=== PATIENT | male | born 1985 | race Caucasian/White ===

== ENCOUNTER 2018-01-16 06:33 | Inpatient (IN) | payer OTHER ==
[2018-01-16] MEDS ORDERED: ALBUTEROL/IPRATROPIUM (NEB) 3 ML AMP HHN (10:00)
[2018-01-16] MEDS ORDERED: ONDANSETRON 4 MG INJ IV (10:00)
[2018-01-16] MEDS ORDERED: ACETAMINOPHEN 325 MG TAB PO (10:00)
[2018-01-16] MEDS ORDERED: DOCUSATE SODIUM 100 MG CAP PO (10:00)
[2018-01-16] MEDS ORDERED: NACL 0.9% 3 ML SYG IV (10:00)
[2018-01-16] MEDS ORDERED: AZITHROMYCIN 250 MG TAB PO (10:30)
[2018-01-16] MEDS ORDERED: GLUCOSE GEL 15 GRAM TUBE BUCCAL (11:00)
[2018-01-16] MEDS ORDERED: GLUCOSE GEL 15 GRAM TUBE PO ×2 (11:00)
[2018-01-16] MEDS ORDERED: GLUCAGON 1 MG INJ IM (11:00)
[2018-01-16] MEDS ORDERED: DEXTROSE 50% 50 ML SYRINGE IV ×2 (11:00)
[2018-01-16 11:23] LABS: ADD MAN DIFF? NO
[2018-01-16 11:27] LABS: BASOPHILS % 0.2 % (0.0-2.0); HEMATOCRIT 44.9 % (42.0-52.0); HEMOGLOBIN 15.2 g/dl (14.0-18.0); LYMPHOCYTES # 0.8 10^3/ul (0.8-2.9); LYMPHOCYTES % 7.2 % (15.0-51.0); MEAN CORPUSCULAR HEMOGLOBIN 30.8 pg (29.0-33.0); MEAN CORPUSCULAR HGB CONC 33.9 g/dl (32.0-37.0); MEAN CORPUSCULAR VOLUME 90.9 fl (82.0-101.0); MEAN PLATELET VOLUME 9.7 fl (7.4-10.4); MONOCYTE # 0.1 10^3/ul (0.3-0.9); NEUTROPHIL # 9.7 10^3/ul (1.6-7.5); NEUTROPHILS % 90.9 % (39.0-77.0); PLATELET COUNT 327 10^3/UL (140-415); RED BLOOD COUNT 4.94 10^6/ul (4.70-6.10); RED CELL DISTRIBUTION WIDTH 12.1 % (11.5-14.5)
[2018-01-16 11:27] LABS: WHITE BLOOD COUNT 10.7 10^3/ul (4.8-10.8)
[2018-01-16 11:45] LABS: LACTIC ACID 4.1 mmol/L (0.5-2.0)
[2018-01-16] MEDS: METHYLPREDNISOLONE 125 MG INJ IV ×2 (11:47→21:11)
[2018-01-16] MEDS: CEFTRIAXONE 1 GM/50 ML (PMX) 50 ML IVPB (11:48)
[2018-01-16 11:56] LABS: ALANINE AMINOTRANSFERASE 100 IU/L (13-69); ALBUMIN 4.6 g/dl (3.3-4.9); ALBUMIN/GLOBULIN RATIO 1.27; ALKALINE PHOSPHATASE 63 IU/L (42-121); ANION GAP 22 (8-16); ASPARTATE AMINO TRANSFERASE 55 IU/L (15-46); BILIRUBIN,INDIRECT 0.4 mg/dl (0-1.1); BILIRUBIN,TOTAL 0.4 mg/dl (0.2-1.3); BLOOD UREA NITROGEN 12 mg/dl (7-20); CALCIUM 9.8 mg/dl (8.4-10.2); CARBON DIOXIDE 21 mmol/L (21-31); CHLORIDE 104 mmol/L (97-110); CREATININE 0.79 mg/dl (0.61-1.24); GLUCOSE 244 mg/dl (70-220); POTASSIUM 4.8 mmol/L (3.5-5.1); SODIUM 142 mmol/L (135-144); TOTAL PROTEIN 8.2 g/dl (6.1-8.1)
[2018-01-16] MEDS: ENOXAPARIN 40 MG/0.4 ML SYG SC (11:57)
[2018-01-16] MEDS: AZITHROMYCIN 500MG/NS (PMX) 250 ML IV (12:20)
[2018-01-16] MEDS: INSULIN ASPART [NOVOLOG] 3 ML PEN SC ×3 (12:25→21:00)
[2018-01-16] MEDS ORDERED: SOD CHLORIDE 0.9% 1,000 ML IV (12:30)
[2018-01-16] MEDS ORDERED: SOD CHLORIDE 0.9% 500 ML IV (12:30)
[2018-01-16] MEDS: ALBUTEROL/IPRATROPIUM (NEB) 3 ML AMP HHN (12:30)
[2018-01-16] MEDS ORDERED: LEVALBUTEROL (NEB) 0.63 MG/3 ML AMP HHN (13:30)
[2018-01-16] MEDS ORDERED: IPRATROPIUM (NEB) 0.5 MG/2.5 ML AMP HHN (13:30)
[2018-01-16] MEDS: SOD CHLORIDE 0.9% 2,760 ML IV (13:38)
[2018-01-16] MEDS: SOD CHLORIDE 0.9% 1,000 ML IV ×2 (16:08→22:30)
[2018-01-16 16:54] LABS: LACTIC ACID 2.4 mmol/L (0.5-2.0)
[2018-01-16] MEDS: IPRATROPIUM (NEB) 0.5 MG/2.5 ML AMP HHN (20:39)
[2018-01-16] MEDS: LEVALBUTEROL (NEB) 0.63 MG/3 ML AMP HHN (20:39)
[2018-01-16] MEDS: FAMOTIDINE 20 MG TAB PO (21:11)
[2018-01-17] MEDS: ACCU-CHEK XX (02:00)
[2018-01-17] MEDS: IPRATROPIUM (NEB) 0.5 MG/2.5 ML AMP HHN ×4 (02:00→20:42)
[2018-01-17] MEDS: LEVALBUTEROL (NEB) 0.63 MG/3 ML AMP HHN ×4 (02:00→20:42)
[2018-01-17] MEDS: SOD CHLORIDE 0.9% 1,000 ML IV ×4 (04:04→18:02)
[2018-01-17] MEDS: METHYLPREDNISOLONE 125 MG INJ IV (05:52)
[2018-01-17 06:12] LABS: ADD MAN DIFF? NO
[2018-01-17 06:17] LABS: WHITE BLOOD COUNT 21.4 10^3/ul (4.8-10.8)
[2018-01-17 06:17] LABS: BASOPHILS % 0.2 % (0.0-2.0); HEMATOCRIT 41.9 % (42.0-52.0); HEMOGLOBIN 14.4 g/dl (14.0-18.0); LYMPHOCYTES # 1.4 10^3/ul (0.8-2.9); LYMPHOCYTES % 6.5 % (15.0-51.0); MEAN CORPUSCULAR HEMOGLOBIN 31.3 pg (29.0-33.0); MEAN CORPUSCULAR HGB CONC 34.4 g/dl (32.0-37.0); MEAN CORPUSCULAR VOLUME 91.1 fl (82.0-101.0); MEAN PLATELET VOLUME 9.8 fl (7.4-10.4); MONOCYTES % 4.7 % (0.0-11.0); NEUTROPHIL # 18.9 10^3/ul (1.6-7.5); NEUTROPHILS % 88.1 % (39.0-77.0); PLATELET COUNT 321 10^3/UL (140-415)
[2018-01-17 06:55] LABS: HEMOGLOBIN A1C 6.4 % (0-5.9)
[2018-01-17 07:07] LABS: ANION GAP 19 (8-16); BLOOD UREA NITROGEN 13 mg/dl (7-20); CALCIUM 9.4 mg/dl (8.4-10.2); CARBON DIOXIDE 22 mmol/L (21-31); CHLORIDE 106 mmol/L (97-110); CHOL/HDL RATIO 4.6 RATIO; CHOLESTEROL 238 mg/dl (100-200); CREATININE 0.69 mg/dl (0.61-1.24); GLUCOSE 214 mg/dl (70-220); HDL CHOLESTEROL 51 mg/dl (28-63); LDL CHOLESTEROL,CALCULATED 169 mg/dl; MAGNESIUM 2.1 mg/dl (1.7-2.5); POTASSIUM 4.7 mmol/L (3.5-5.1); SODIUM 142 mmol/L (135-144); TRIGLYCERIDES 90 mg/dl (0-149)
[2018-01-17] MEDS: INSULIN ASPART [NOVOLOG] 3 ML PEN SC ×4 (07:38→21:20)
[2018-01-17] MEDS: FAMOTIDINE 20 MG TAB PO ×2 (08:42→21:14)
[2018-01-17] MEDS: ENOXAPARIN 40 MG/0.4 ML SYG SC (08:46)
[2018-01-17] MEDS ORDERED: AZITHROMYCIN 250 MG TAB PO (09:00)
[2018-01-17] MEDS: CEFTRIAXONE 1 GM/50 ML (PMX) 50 ML IVPB (10:19)
[2018-01-17] MEDS: AZITHROMYCIN 500MG/NS (PMX) 250 ML IV (10:55)
[2018-01-17] MEDS: METHYLPREDNISOLONE 40 MG INJ IV ×2 (14:48→21:14)
[2018-01-17 16:22] LABS: LACTIC ACID 4.8 mmol/L (0.5-2.0)
[2018-01-17 20:35] LABS: LACTIC ACID 3.7 mmol/L (0.5-2.0)
[2018-01-18] MEDS: SOD CHLORIDE 0.9% 1,000 ML IV ×2 (00:52→07:50)
[2018-01-18] MEDS: IPRATROPIUM (NEB) 0.5 MG/2.5 ML AMP HHN ×2 (01:00→08:15)
[2018-01-18] MEDS: LEVALBUTEROL (NEB) 0.63 MG/3 ML AMP HHN ×2 (01:00→08:15)
[2018-01-18] MEDS: ACCU-CHEK XX (02:00)
[2018-01-18] MEDS: METHYLPREDNISOLONE 40 MG INJ IV (05:40)
[2018-01-18 06:14] LABS: ADD MAN DIFF? NO
[2018-01-18 06:26] LABS: BASOPHILS % 0.1 % (0.0-2.0); HEMATOCRIT 40.4 % (42.0-52.0); HEMOGLOBIN 13.9 g/dl (14.0-18.0); LYMPHOCYTES # 1.4 10^3/ul (0.8-2.9); LYMPHOCYTES % 6.4 % (15.0-51.0); MEAN CORPUSCULAR HEMOGLOBIN 31.2 pg (29.0-33.0); MEAN CORPUSCULAR HGB CONC 34.4 g/dl (32.0-37.0); MEAN CORPUSCULAR VOLUME 90.6 fl (82.0-101.0); MEAN PLATELET VOLUME 10.3 fl (7.4-10.4); MONOCYTE # 0.6 10^3/ul (0.3-0.9); MONOCYTES % 2.7 % (0.0-11.0); NEUTROPHIL # 19.3 10^3/ul (1.6-7.5); NEUTROPHILS % 89.2 % (39.0-77.0); PLATELET COUNT 346 10^3/UL (140-415); RED BLOOD COUNT 4.46 10^6/ul (4.70-6.10)
[2018-01-18 06:26] LABS: WHITE BLOOD COUNT 21.7 10^3/ul (4.8-10.8)
[2018-01-18 06:55] LABS: ANION GAP 17 (8-16); BLOOD UREA NITROGEN 16 mg/dl (7-20); CALCIUM 9.4 mg/dl (8.4-10.2); CARBON DIOXIDE 23 mmol/L (21-31); CHLORIDE 106 mmol/L (97-110); GLUCOSE 206 mg/dl (70-220); POTASSIUM 4.1 mmol/L (3.5-5.1); SODIUM 142 mmol/L (135-144)
[2018-01-18] MEDS: FAMOTIDINE 20 MG TAB PO (07:50)
[2018-01-18] MEDS: ENOXAPARIN 40 MG/0.4 ML SYG SC (07:58)
[2018-01-18] MEDS: INSULIN ASPART [NOVOLOG] 3 ML PEN SC (07:59)
[2018-01-18 09:20] LABS: LACTIC ACID 1.7 mmol/L (0.5-2.0)
[2018-01-18] MEDS ORDERED: METHYLPREDNISOLONE 40 MG INJ IV (18:00)
== END 2018-01-18 12:09 | disposition home or self-care (01) | DRG 871 ==
LOC: 6WM 06:33
DX: A41.9 Sepsis, unspecified organism (principal); J18.9 Pneumonia, unspecified organism; J45.901 Unspecified asthma with (acute) exacerbation; R73.03 Prediabetes; E66.9 Obesity, unspecified; E78.5 Hyperlipidemia, unspecified; Z68.31 Body mass index [BMI] 31.0-31.9, adult
CPT/HCPCS: 71045; 80048; 80053; 80061; 82962; 83036; 83605; 83735; 85025; 87040; 87070; 87086; 94640; 94664